=== PATIENT | male | born 1925 | race Caucasian/White ===

== ENCOUNTER 2016-05-22 18:18 | Emergency (ER) | payer MEDICARE, BC ==
--- NOTE | ~2016-05-22 | CR72 ---
[facility] A Service of [facility] RADIOLOGY TEXT RESULTS PATIENT: JAIME LEMUS LOCATION: SED : [birth year] UNIT #: [id number] AGE: [address]: Maikel Mancini MD SEX: M ORDER DR: [id number] [place] [id number] MR#: [id number] Acc #: [id number] NAME: JAIME LEMUS : 1925 SEX: M STUDY DATE/TIME: 05/22/2016 17:46 UNIT: SED ROOM: STUDY DESCRIPTION: CR Chest Single View Portable Attending Physician: Maikel Mancini M.D. Ordering Physician: Stephen Damian M.D. Primary Care Physician: Willis Brand M.D. MEDICAL IMAGING REPORT This report is preliminary unless electronic signature is present. EXAM Portable chest INDICATION Shortness of air for the past 1.5 hours. PROCEDURE Frontal view chest. COMPARISON 02/18/2014. FINDINGS Cardiomegaly unchanged. Persistent prominent central pulmonary vessels. There is interstitial prominence in both lungs that is new or increased. No appreciable pleural fluid or pneumothorax. IMPRESSION Interstitial prominence in both lungs is new or increased compared with the prior suspected to represent edema. Stable cardiomegaly and central pulmonary vascular prominence. Dictated by... Torin Belle M.D. THIS IS AN ELECTRONICALLY VERIFIED REPORT Torin Belle M.D. at 05/25/2016 7:22 AM EED/cesar TD: 05/23/2016 11:31 JOB #: [id number] [facility] A Service [facility] RADIOLOGY TEXT RESULTS PATIENT: JAIME LEMUS LOCATION: SED : [birth year] UNIT #: [id number] AGE: [address]: Maikel Mancini MD SEX: M ORDER DR: MEDICAL IMAGING REPORT
--- NOTE | ~2016-05-22 | EKG ---
PATIENT: JAIME LEMUS UNIT #: [id number] Ventricular Rate: 94 BPM Atrial Rate: 46 BPM QRS Duration: 80 ms Q-T Interval: 356 ms QTC Calculation(Bezet): 445 ms Calculated R [place]: 59 degrees Calculated T [place]: -27 degrees Diagnosis Line: Atrial fibrillation with premature ventricular or Diagnosis Line: aberrantly conducted complexes Diagnosis Line: Right bundle branch block Diagnosis Line: Nonspecific ST and T wave abnormality , probably Diagnosis Line: digitalis effect Diagnosis Line: Abnormal ECG Diagnosis Line: No previous ECGs available Diagnosis Line: Confirmed by VALENTIN OSBORN MD ([id number]) on Diagnosis Line: 06/25/2016 7:05:18 AM INTERPRETING MD: SHAUN
[2016-05-22 18:00] LABS: BASOPHIL# 0.1 X10e3 (0-0.3); BASOPHIL% 1.4 % (0-2.5); EOSINOPHIL# 0.3 X10e3 (0-0.7); EOSINOPHIL% 5.4 % (0.0-7.0); HEMATOCRIT 41.6 % (38.0-50.0); HEMOGLOBIN 13.2 gm/dL (13.0-16.0); LYMPHOCYTE# 1.1 X10e3 (1.0-3.5); LYMPHOCYTE% 20.7 % (17.0-45.0); MEAN CORPUSCULAR HEMOGLOBIN 24.2 PG (28-34); MEAN CORPUSCULAR HGB CONC 31.9 g/dL (30-36); MEAN PLATELET VOLUME 7.5 FL (6.5-11.5); MONOCYTE# 0.3 X10e3 (0-1.0); NEUTROPHIL# 3.6 X10e3 (1.5-7.1); NEUTROPHIL% 67.5 % (40-75); PLATELET COUNT 232 X10e3 (140-420); RED BLOOD COUNT 5.47 X10e (3.90-5.60); RED CELL DISTRIBUTION WIDTH 16.4 % (11.0-15.5); WHITE BLOOD COUNT 5.4 X10e3 (4.0-10.5)
[2016-05-22 18:02] LABS: DIFF IND NO
[2016-05-22 18:18] LABS: INR 2.4; PROTHROMBIN TIME (PATIENT) 27.2 SECONDS (9.5-12.4)
[~2016-05-22 18:18] MED LIST: ASPIRIN81 M2; BENAZEPRIL; CARDURA; FENOFIBRATE40 MG; FLOMAX0.4 M1; LANTUS100 U/ML; NORVASC; PROTONIX; VITAMIN D400 UNI2; XARELTO20 MG; ZOCOR
[2016-05-22 18:20] LABS: POC - CKMB 2.4 ng/mL (0.0-7.9); POC - TROPONIN <0.05 ng/mL (<=0.05)
[2016-05-22 18:25] LABS: ALBUMIN SERUM 4.4 g/dL (3.5-5.0); ALKALINE PHOSPHATASE 80 U/L (32-92); ALT (SGPT) 15 U/L (10-40); AST (SGOT) 29 U/L (10-42); BILIRUBIN, DIRECT 0.2 mg/dL (0.0-0.2); BILIRUBIN,INDIRECT 0.6 mg/dL (0.0-0.9); BILIRUBIN,TOTAL 0.8 mg/dL (0.2-2.0); BLOOD UREA NITROGEN 15 mg/dL (9-23); BUN/CREATININE RATIO 13.63; CALCIUM SERUM 9.4 mg/dL (8.4-10.2); CARBON DIOXIDE 24 mmol/L (22-31); CHLORIDE 101 mmol/L (100-111); CREATININE SERUM 1.1 mg/dL (0.6-1.4); GLOM FILT RATE Estimated ABOVE60 mL/min (>60); GLUCOSE FASTING 259 mg/dL (70-110); PARTIAL THROMBOPLASTIN TIME 43.1 SECONDS (25.6-38.1); POTASSIUM 3.5 mmol/L (3.5-5.1); PROTEIN TOTAL SERUM 8.3 g/dL (6.0-8.3); SODIUM 133 mmol/L (135-145)
[2016-05-22 19:56] LABS: POC - CKMB 1.7 ng/mL (0.0-7.9)
[2016-05-22 19:57] LABS: POC - TROPONIN <0.05 ng/mL (<=0.05)
== END 2016-05-22 20:10 | disposition home or self-care (01) ==
LOC: SED 18:18
PROVIDERS: Emergency Medicine
DX: I48.91 Unspecified atrial fibrillation (principal); I11.0 Hypertensive heart disease with heart failure; I50.9 Heart failure, unspecified; E11.9 Type 2 diabetes mellitus without complications; K21.9 Gastro-esophageal reflux disease without esophagitis
CPT/HCPCS: 36415; 71010; 80048; 80076; 82553; 83874; 83880; 84484; 85025; 85610; 85730; 93005; 96374; 96375; 99284; J1940